=== PATIENT | male | born 1980 | race American Indian/Alaskan Native ===

== ENCOUNTER 2016-12-05 11:03 | Emergency (ER) | payer OTHER ==
[2016-12-05 11:18] VITALS: BP 130/81; PULSE 113; TEMP 99.1; BMI 28.3
[2016-12-05] MEDS ORDERED: ONDANSETRON 4 MG/2 ML VIAL IVPUSH ONE (11:39)
[2016-12-05] MEDS ORDERED: ACETAMINOPHEN 500 MG TABLET (FP) PO ONE (11:39)
[2016-12-05] MEDS ORDERED: SODIUM CHLORIDE 1,000 ML IV ONE (11:39)
--- NOTE | 2016-12-05 11:40 | PDOC ---
History of Present Illness - General History Source: Patient Exam Limitations: No Limitations - History of Present Illness Initial Comments: 12/05/16 11:56 The patient is a 36 year old male, with a significant past medical history of diabetes, who presents to the emergency department with fever, generalized weakness, chills, cough, nausea and vomiting since this morning. He notes that his fever is subjective. He reports that his vomit is nonbilious and nonbloody. He states that he had a small cough yesterday that was dry in nature. He denies any recent travel or sick contacts. He does note that he ate home cooked rice yesterday. The patient denies chest pain, shortness of breath, headache and dizziness. Denies diarrhea and constipation. Allergies: None Past surgical history: None reported Social history: No alcohol, tobacco or drug use reported <Thai Rivero - Last Filed: 12/05/16 11:56> <Too Sarkar - Last Filed: 12/05/16 14:14> - General Chief Complaint: Nausea/Vomiting Stated Complaint: FEVER Time Seen by Provider: 12/05/16 11:37 Past History <Thai Rivero - Last Filed: 12/05/16 11:56> - Past Medical History Diabetes: Yes Suicide Attempt (Hx): Yes - Psycho/Social/Smoking Cessation Hx Suicidal Ideation: No Smoking History: Never smoked Drug/Substance Use Hx: No Substance Use Type: None <Too Sarkar - Last Filed: 12/05/16 14:14> - Past Medical History Allergies/Adverse Reactions: Allergies Allergy/AdvReac Type Severity Reaction Status Date / Time No Known Allergies Allergy Verified 12/05/16 11:14 Home Medications: Ambulatory Orders Metformin HCl [Glucophage] 1,000 mg PO BID 11/09/13 Ondansetron [Zofran *Odt*] 8 mg SL TID PRN #10 od.tablet 12/05/16 Review of Systems - Review of Systems Constitutional: Yes: Chills, Fever HEENTM: No: Nose Congestion, Throat Pain, Throat Swelling Respiratory: No: Cough, Shortness of Breath Cardiac (ROS): No: Chest Pain, Palpitations, Syncope ABD/GI: Yes: Nausea, Vomiting. No: Diarrhea : No: Dysuria, Frequency Musculoskeletal: Yes: Muscle Pain. No: Back Pain Integumentary: No: Rash Neurological: No: Headache All Other Systems: Reviewed and Negative <Too Sarkar - Last Filed: 12/05/16 14:14> *Physical Exam - Vital Signs Last Vital Signs Temp Pulse Resp BP Pulse Ox 99.1 F 113 H 20 130/81 97 12/05/16 11:15 12/05/16 11:15 12/05/16 11:15 12/05/16 11:15 12/05/16 11:15 - Physical Exam Comments: 12/05/16 11:56 GENERAL: The patient is awake, alert, and fully oriented, in no acute distress. Feels warm to touch. HEAD: Normal with no signs of trauma. EYES: Pupils equal, round and reactive to light, extraocular movements intact, sclera anicteric, conjunctiva clear with no pallor. ENT: Ears normal, nares patent, oropharynx clear without exudates. Dry mucous membranes. NECK: Normal range of motion, supple without lymphadenopathy, JVD, or masses. LUNGS: Breath sounds equal, clear to auscultation bilaterally. No wheeze/ crackles. HEART: +Slight tachycardia. Normal S1 and S2 without murmur or rub. ABDOMEN: Soft/nontender/nondistended. BS wnl. No guarding or rebound. No palpable masses. No hepatosplenomegaly. EXTREMITIES: Normal range of motion, no edema. No clubbing or cyanosis. No cords , erythema, or tenderness. NEUROLOGICAL: Cranial nerves II through XII grossly intact. Normal speech, normal gait. PSYCH: Normal mood, normal affect. SKIN: Warm, Dry, normal turgor, no rashes or lesions noted. <Thai Rivero - Last Filed: 12/05/16 11:56> - Vital Signs Last Vital Signs Temp Pulse Resp BP Pulse Ox 99.1 F 113 H 20 130/81 97 12/05/16 11:15 12/05/16 11:15 12/05/16 11:15 12/05/16 11:15 12/05/16 11:15 <Too Sarkar - Last Filed: 12/05/16 14:14> ED Treatment Course - LABORATORY CBC & Chemistry Diagram: 12/05/16 12:15 12/05/16 12:15 <Too Sarkar - Last Filed: 12/05/16 14:14> Medical Decision Making - Medical Decision Making 12/05/16 11:47 A portion of this note was documented by scribe services under my direction. I have reviewed the details of the note, within reason, and agree with the documentation with the following case summary and management plan written by me. 36-year-old male history of diabetes presents with fever/chills/nausea/vomiting since last night, slight body aches but no respiratory complaints. No persistent abdominal pain, no cough or shortness of breath, no recent travel or antibiotics. Low-grade fever at triage, O2 sat normal. Warm to touch Lungs are clear, abdomen is benign 36-year-old male with diabetes presents with likely viral syndrome, question influenza versus gastroenteritis. No evidence for focal pulmonary or GI process , generally well-appearing. Check labs and lactate IV fluids, antipyretics, antiemetics Reassess 12/05/16 14:07 Leukocytosis of 17 with left shift, chemistries are within normal limits including normal anion gap, normal lactate, normal lipase. Patient feels much better after IV fluids and Zofran, tolerating by mouth, abdomen remains benign, agrees with discharge plan and understands return criteria. <Too Sarkar - Last Filed: 12/05/16 14:14> *DC/Admit/Observation/Transfer - Attestations Scribe Attestion: 12/05/16 11:56 Documentation prepared by Thai Rivero, acting as anesthesiology medical doctor for Too Sarkar MD. <Thai Rivero - Last Filed: 12/05/16 11:56> <Too Sarkar - Last Filed: 12/05/16 14:14> Diagnosis at time of Disposition: Gastroenteritis Fever Qualifiers: Fever type: unspecified Qualified Code(s): R50.9 - Fever, unspecified - Discharge Dispostion Disposition: HOME Condition at time of disposition: Improved - Prescriptions Prescriptions: Ondansetron [Zofran *Odt*] 8 mg SL TID PRN #10 od.tablet PRN Reason: Nausea - Referrals Referrals: Michael Sarah MD [Primary Care Provider] - - Patient Instructions Printed Discharge Instructions: DI for Viral Gastroenteritis -- Adult Additional Instructions: Activity as tolerated. Stay hydrated. Advance diet as tolerated, avoiding dairy , spicy or fatty foods, caffeine and alcohol. Continue your medications as previously prescribed by your physician. Zofran as prescribed as needed for nausea. You should follow up with your primary doctor as needed regarding today's emergency department visit. Return to the emergency department for any new or concerning symptoms, particularly persistent or worsening pain, persistent vomiting or dehydration, fevers or chills, bloody stool, uncontrollable sugar levels.
[2016-12-05] MEDS ORDERED: ONDANSETRON 4 MG/2 ML VIAL ONE (12:25)
[2016-12-05] MEDS ORDERED: ACETAMINOPHEN 325 MG TABLET (FP) ONE (12:25)
[2016-12-05 12:27] LABS: BASOPHIL 0.3 % (0-2.0); EOSINOPHIL 0.1 % (0-4.5); MCH 29.3 pg (25.7-33.7); MCHC 33.7 g/dl (32.0-35.9); MEAN CELL VOLUME 86.9 fl (80-96); MEAN PLT VOLUME 9.6 fl (7.5-11.1); NEUTROPHILS 88.4 % (42.8-82.8); PLATELET COUNT 186 K/MM3 (134-434); RDW 12.8 % (11.9-15.9); WHITE BLOOD COUNT 17.5 K/mm3 (4.0-10.0)
[2016-12-05 12:57] LABS: ALBUMIN 4.2 g/dl (3.4-5.0); ANION GAP 9 (8-16); CALCIUM 8.6 mg/dL (8.5-10.1); CO2 26 mmol/L (21-32); GLUCOSE,RANDOM 154 mg/dL (74-106)
[2016-12-05 13:03] LABS: ALK PHOS 74 U/L (45-117); BILIRUBIN,TOTAL 0.8 mg/dL (0.2-1.0); CREATININE 0.8 mg/dL (0.7-1.3); SGOT/AST 13 U/L (15-37); SGPT/ALT 40 U/L (12-78); TOT PROT 7.4 g/dl (6.4-8.2)
== END 2016-12-05 14:40 | disposition home or self-care (01) ==
LOC: JER 11:03
PROC: 3E033GC Introduction of Other Therapeutic Substance into Peripheral Vein, Percutaneous Approach (ICD-10-PCS; principal; 2016-12-05)
DX: K52.9 Noninfective gastroenteritis and colitis, unspecified (principal); E11.9 Type 2 diabetes mellitus without complications; Z79.84 Long term (current) use of oral hypoglycemic drugs
CPT/HCPCS: 36415; 80053; 83605; 83690; 85025; 87804; 96374; 99282-25